=== PATIENT | female | born 1945 | race Caucasian/White ===

== ENCOUNTER → 2019-10-05 | Day surgery (SDC) | payer MEDICARE ==
[~2019-10-05] MED LIST: ATOR10TA60 PO; CARV25TA2 PO; HYDR50TA6 PO; HYDROmorphone 2 MG/ML VIAL IV PRN; IV RINGERS,LACTATED 1000ML 1,000 ML IV SCH; LEVO137T3 PO; LIDOCAINE 1% PF 2 ML VIAL. ID PRN; LIDOCAINE 2% PF 5 ML VIAL. ONE; LISI-130 PO; MORPHINE SULFATE 2 MG/ML VIAL. IV PRN; ONDANSETRON PF 4 MG/2 ML VIAL. IV PRN; PROCHLORPERAZINE 10 MG/2 ML VIAL. IV PRN; PROPOFOL 20 ML IV ONE; fentaNYL PF VIAL 100 MCG/2 ML VIAL IV PRN
--- NOTE | 2019-10-05 11:19 | PREOP HP ---
DATE OF SERVICE: 10/05/2019 DATE OF PROCEDURE: 10/05/2019. REQUESTING PHYSICIAN: Melissa Smart MD PRIMARY CARE PHYSICIAN: Melissa Smart MD REASON FOR PROCEDURE: Colorectal cancer screening. HISTORY OF PRESENT ILLNESS: This is a 74-year-old female who presents today for colorectal cancer screening. She has never had a colonoscopy. She admits to daily bowel movement and denies any family history of colon cancer. ALLERGIES: No known drug allergies. PAST MEDICAL HISTORY: 1. Hypertension. 2. Arthritis. 3. Hyperthyroidism. 4. Hypercholesterolemia. FAMILY MEDICAL HISTORY: Significant for mother with colon polyps. SOCIAL HISTORY: She admits to alcohol, but denies any tobacco or IV drug abuse. MEDICATIONS: MAR was reviewed. REVIEW OF SYSTEMS: A 13-point review of systems was done and is positive as per HPI and otherwise negative. PHYSICAL EXAMINATION: GENERAL: She is a well-developed, well-nourished female, in no apparent distress. HEENT: Oropharynx is clear. CARDIOVASCULAR: S1, S2. LUNGS: Clear. ABDOMEN: Normoactive bowel sounds, soft, nontender, nondistended. EXTREMITIES: No edema. NEUROLOGIC: Awake, alert, oriented x 3. ASSESSMENT AND PLAN: Colorectal cancer screening. The risks and benefits of the procedure including bleeding, perforation, non-diagnosis and sedation were explained and she has agreed to proceed. MAR RAWLS MD DR: HERIBERTO/minh JOB#: [id number] / [id number]
[2019-10-05 11:23] VITALS: BP 123/52
--- NOTE | 2019-10-06 15:07 | PATHOLOGY ---
[facility] Accession Number: [id number] . 01 Material submitted: . PART A: cecum - CECAL POLYP PART B: colon - SIGMOID POLYPS. Modifiers: sigmoid . 01 Clinical history: . Screening . 02 Diagnosis: A. Colon biopsies, cecal polyp: - Tubular adenoma. . B. Colon biopsies, sigmoid polyps: - Hyperplastic polyps. (JPM:richi; 10/06/2019) QMS 10/06/2019 0946 Local . 02 Comment: There is no high grade dysplasia or evidence of malignancy. . 02 Electronically signed: . Carlos Valdovinos MD, Pathologist NPI- [id number] . 01 Gross description: . A. Received in formalin labeled "Wurzer, Keila, cecal polyp," are 2 segments of ahuja soft tissue measuring 0.7 x 0.2 x 0.2 cm in aggregate dimensions and ranging from 0.3 to 0.4 cm in maximum dimension. The specimen is submitted entirely in cassette A1. . B. Received in formalin labeled "Wurzer, Keila, sigmoid polyps," are 5 segments of ahuja soft tissue measuring 0.9 x 0.9 x 0.4 cm in aggregate dimensions and ranging from 0.2 to 0.6 cm in maximum dimension. The specimen is submitted entirely in cassette B1. (TSD; 10/05/2019) TOB/TOB 10/05/2019 1630 Local . 02 Pathologist provided ICD-10: D12.0, D12.5 . 02 CPT . 143742, [id number] Specimen Comment: A courtesy copy of this report has been sent to [phone], [phone] Specimen Comment: [id number] Specimen Comment: Report sent to and Performed at: 01 [facility] [address], [place], [place] [id number] MD Dylon Ferraro MD Phone: [phone] Performed at: 02 [facility] [address], [place] [id number] MD Carlos Valdovinos MD Phone: [phone]
== END ==
LOC: ENDOS 09:31
PROVIDERS: ATTEND Internal Medicine Gastroenterology
DX: Z12.11 Encounter for screening for malignant neoplasm of colon (principal); K63.5 Polyp of colon; K64.0 First degree hemorrhoids; K57.30 Diverticulosis of large intestine without perforation or abscess without bleeding; E03.9 Hypothyroidism, unspecified; E78.00 Pure hypercholesterolemia, unspecified; I10 Essential (primary) hypertension; Z87.39 Personal history of other diseases of the musculoskeletal system and connective tissue; Z72.89 Other problems related to lifestyle
CPT/HCPCS: 45380; 88305; J2001; J2704